=== PATIENT | male | born 1955 | race Caucasian/White ===

== ENCOUNTER 2019-06-18 09:10 | Inpatient (IN) | payer MEDICAID ==
[~2019-06-18] VITALS: Ht 165.1 cm; Wt 72.6 kg
[2019-06-18] MEDS ORDERED: RISP.5 PO (10:25)
[2019-06-18] MEDS ORDERED: PROZ10 PO (10:25)
[2019-06-18 11:07] LABS: BASOPHILS % (AUTO) 0.5 % (0.0-2.0); EOSINOPHILS % (AUTO) 0.8 % (1.0-6.0); HEMATOCRIT 44.6 % (41-53); HEMOGLOBIN 15.2 g/dL (13.5-17.5); LYMPHOCYTES # (AUTO) 1.4 K/uL (1.0-4.8); LYMPHOCYTES % (AUTO) 20.3 % (22.0-44.0); MEAN CORPUSCULAR HEMOGLOBIN 32.3 pg (26.0-34.0); MEAN CORPUSCULAR HGB CONC 34.2 G/dL (31.0-37.0); MEAN CORPUSCULAR VOLUME 94 fL (80-100); MONOCYTES # (AUTO) 0.8 K/uL (0.1-1.0); MONOCYTES % (AUTO) 10.8 % (2.0-9.0); NEUTROPHILS # (AUTO) 4.8 K/uL (1.8-7.7); NEUTROPHILS % (AUTO) 67.6 % (40.0-70.0); PLATELET COUNT (AUTO) 221 K/uL (150-450); RED BLOOD CELL COUNT(AUTO) 4.72 MIL/uL (4.50-5.90)
[2019-06-18] MEDS ORDERED: ZOLPIDEM TARTRATE 10 MG TABLET PO PRN (11:15)
[2019-06-18] MEDS ORDERED: HALOPERIDOL 5 MG TABLET PO PRN (11:15)
[2019-06-18 11:17] LABS: ANION GAP 7 mmol/L (8-16); CALCIUM, TOTAL 9.3 mg/dL (8.8-10.5); CARBON DIOXIDE 30 mmol/L (22-29); CHLORIDE 97 mmol/L (98-107); CREATININE 1.03 mg/dL (0.60-1.30); GLOMERULAR FILTR. RATE CALC > 60 mL/min (>60); GLUCOSE,RANDOM 103 mg/dL (70-110); POTASSIUM 3.1 mmol/L (3.5-5.1); SODIUM SERUM 134 mmol/L (136-145); UREA NITROGEN, BLOOD 14 mg/dL (7-18)
[2019-06-18 11:30] LABS: AMPHET/METH SCREEN,URINE POSITIVE (NEGATIVE); APPEARANCE,URINE CLOUDY (CLEAR); BARBITURATE SCREEN, URINE POSITIVE (NEGATIVE); BENZODIAZEPINES SCREEN,URINE POSITIVE (NEGATIVE); BILIRUBIN,URINE PRELIM. POSITIVE (NEGATIVE); CANNABINOID SCREEN,URINE NEGATIVE (NEGATIVE); COCAINE SCREEN,URINE NEGATIVE (NEGATIVE); GLUCOSE, URINE (UA) NEGATIVE (NEGATIVE); KETONES,URINE NEGATIVE (NEGATIVE); LEUKOCYTE ESTERASE ,URINE NEGATIVE (NEGATIVE); METHADONE SCREEN, URINE NEGATIVE (NEGATIVE); NITRATE,URINE NEGATIVE (NEGATIVE); OCCULT BLOOD,URINE NEGATIVE (NEGATIVE); OPIATE SCREEN,URINE POSITIVE (NEGATIVE); PH,URINE 5.5 (5.0-8.0); PROTEIN,URINE TRACE (NEGATIVE); UROBILINOGEN,URINE 0.2 mg/dL (<=1.0)
[2019-06-18] MEDS ORDERED: POTASSIUM CHLORIDE 20 MEQ ER TABLET PO ONE (11:30)
[2019-06-18 11:32] LABS: ALANINE AMINOTRANSFERASE 39 U/L (12-78); ALKALINE PHOSPHATASE 77 U/L (46-116); ASPARTATE AMINOTRANSFERASE 65 U/L (15-37); BILIRUBIN,TOTAL 1.1 mg/dL (0.1-1.0); TOTAL PROTEIN, SERUM 7.9 g/dL (6.4-8.2)
[2019-06-18 11:37] LABS: BACTERIA,URINE None Seen /HPF (None Seen); CALCIUM OXALATE CRYSTALS,UR Many /LPF (None Seen); RBC,URINE None Seen /HPF (0-2); SQUAMOUS EPITHELIAL CELL,UR Few /LPF (None Seen)
[2019-06-18 11:41] LABS: PHENCYCLIDINE SCREEN,URINE NEGATIVE (NEGATIVE)
[2019-06-18] MEDS ORDERED: CloNIDine HCL 0.1 MG TABLET PO PRN (13:15)
[2019-06-18] MEDS ORDERED: IBUPROFEN 400 MG TABLET PO PRN (13:15)
[2019-06-18] MEDS ORDERED: ALBUTEROL SULFATE HFA 90 MCG/PUFF 8 GM INHALER IH PRN (13:15)
[2019-06-18] MEDS ORDERED: PETROLATUM,WHITE 28 GM JELLY TP PRN (13:15)
[2019-06-18] MEDS ORDERED: LOPERAMIDE HCL 2 MG CAPSULE PO PRN (13:15)
[2019-06-18] MEDS ORDERED: ONDANSETRON HCL 4 MG TABLET PO PRN (13:15)
[2019-06-18] MEDS ORDERED: NICOTINE 14 MG/24 HOUR PATCH TD PRN (13:15)
[2019-06-18] MEDS ORDERED: ACETAMINOPHEN 325 MG TABLET PO PRN (13:15)
[2019-06-18] MEDS ORDERED: DOCUSATE SODIUM 100 MG CAPSULE PO PRN (13:15)
[2019-06-18] MEDS ORDERED: GuaiFENesin/D-METHORPHAN [SUGAR-FREE] 200-20MG/10 ML SYRUP UDCUP PO PRN (13:15)
[2019-06-18] MEDS ORDERED: MAG HYDROX/AL HYDROX/SIMETH ES 30 ML SUSPENSION UDCUP PO PRN (13:15)
[2019-06-18] MEDS ORDERED: MAGNESIUM HYDROXIDE SUSPENSION 30 ML UDCUP PO PRN (13:15)
[2019-06-18 13:29] VITALS: BP 119/73
[2019-06-18 16:00] VITALS: BP 108/65
[2019-06-19 05:46] VITALS: BP 113/55
[2019-06-19 08:06] LABS: CHOL/HDL RATIO 1.9 (4.2-7.3); FREE T4 (FREE THYROXINE) 1.29 ng/dL (0.76-1.46); POTASSIUM 3.1 mmol/L (3.5-5.1); THYROID STIMULATING HORMONE 0.92 uIU/mL (0.36-3.74)
[2019-06-19 10:03] VITALS: BP 105/64
[2019-06-19] MEDS: FLUoxetine HCL 20 MG CAPSULE PO SCH (10:16)
[2019-06-19] MEDS ORDERED: POTASSIUM CHLORIDE 20 MEQ ER TABLET PO ONE (10:45)
[2019-06-19] MEDS ORDERED: MAGNESIUM HYDROXIDE SUSPENSION 30 ML UDCUP PO PRN (13:30)
[2019-06-19] MEDS ORDERED: ONDANSETRON HCL 4 MG TABLET PO PRN (13:30)
[2019-06-19] MEDS ORDERED: LOPERAMIDE HCL 2 MG CAPSULE PO PRN (13:30)
[2019-06-19] MEDS ORDERED: ACETAMINOPHEN 325 MG TABLET PO PRN (13:30)
[2019-06-19] MEDS ORDERED: IBUPROFEN 400 MG TABLET PO PRN (13:30)
[2019-06-19] MEDS ORDERED: CloNIDine HCL 0.1 MG TABLET PO PRN (13:30)
[2019-06-19] MEDS ORDERED: DOCUSATE SODIUM 100 MG CAPSULE PO PRN (13:30)
[2019-06-19] MEDS ORDERED: NICOTINE 14 MG/24 HOUR PATCH TD PRN (13:30)
[2019-06-19] MEDS ORDERED: GuaiFENesin/D-METHORPHAN [SUGAR-FREE] 200-20MG/10 ML SYRUP UDCUP PO PRN (13:30)
[2019-06-19] MEDS ORDERED: ALBUTEROL SULFATE HFA 90 MCG/PUFF 8 GM INHALER IH PRN (13:30)
[2019-06-19] MEDS ORDERED: PETROLATUM,WHITE 28 GM JELLY TP PRN (13:30)
[2019-06-19] MEDS ORDERED: MAG HYDROX/AL HYDROX/SIMETH ES 30 ML SUSPENSION UDCUP PO PRN (13:30)
[2019-06-19 16:13] VITALS: BP 114/67
[2019-06-19] MEDS: LORazepam 2 MG TABLET PO PRN (17:37)
[2019-06-19] MEDS: QUEtiapine FUMARATE 100 MG TABLET PO SCH (20:49)
[2019-06-20] VITALS (7 sets, daily range): BP systolic 97–120; BP diastolic 47–82
[2019-06-20] MEDS: FLUoxetine HCL 20 MG CAPSULE PO SCH (08:24)
[2019-06-20] MEDS ORDERED: ChlordiazePOXIDE HCL 25 MG CAPSULE PO PRN (12:45)
[2019-06-20] MEDS: LORazepam 2 MG TABLET PO PRN ×2 (15:03→21:29)
[2019-06-20] MEDS: QUEtiapine FUMARATE 100 MG TABLET PO SCH (21:23)
[2019-06-21 06:47] VITALS: BP 107/63
[2019-06-21 06:48] VITALS: BP 107/63
[2019-06-21] MEDS ORDERED: ChlordiazePOXIDE HCL 25 MG CAPSULE PO PRN (07:00)
[2019-06-21 08:35] VITALS: BP 97/57
[2019-06-21 08:36] VITALS: BP 97/57
[2019-06-21] MEDS: ChlordiazePOXIDE HCL 25 MG CAPSULE PO SCH ×4 (09:13→20:35)
[2019-06-21] MEDS: FLUoxetine HCL 20 MG CAPSULE PO SCH (09:13)
[2019-06-21] MEDS: LORazepam 2 MG TABLET PO PRN (14:12)
[2019-06-21 17:05] VITALS: BP 111/63
[2019-06-21 17:06] VITALS: BP 111/63
[2019-06-21] MEDS: QUEtiapine FUMARATE 100 MG TABLET PO SCH (20:35)
[2019-06-22 06:59] VITALS: BP 115/65
[2019-06-22 08:19] VITALS: BP 108/55
[2019-06-22] MEDS: FLUoxetine HCL 20 MG CAPSULE PO SCH (09:45)
[2019-06-22] MEDS: ChlordiazePOXIDE HCL 25 MG CAPSULE PO SCH ×4 (09:45→20:59)
[2019-06-22] MEDS: LORazepam 2 MG TABLET PO PRN (14:09)
[2019-06-22 16:16] VITALS: BP 103/65
[2019-06-22] MEDS: QUEtiapine FUMARATE 100 MG TABLET PO SCH (20:59)
[2019-06-23 04:17] VITALS: BP 108/61
[2019-06-23 06:47] VITALS: BP 99/60
[2019-06-23] MEDS ORDERED: ChlordiazePOXIDE HCL 10 MG CAPSULE PO PRN (07:00)
[2019-06-23] MEDS: FLUoxetine HCL 20 MG CAPSULE PO SCH (09:21)
[2019-06-23] MEDS: ChlordiazePOXIDE HCL 10 MG CAPSULE PO SCH ×4 (09:21→20:22)
[2019-06-23 14:01] VITALS: BP 111/66
[2019-06-23 16:30] VITALS: BP 108/76
[2019-06-23 17:19] VITALS: BP 108/76
[2019-06-23] MEDS: LORazepam 2 MG TABLET PO PRN (18:37)
[2019-06-23] MEDS: QUEtiapine FUMARATE 200 MG TABLET PO SCH (20:21)
[2019-06-24] VITALS: BP 113/82
[2019-06-24 05:07] VITALS: BP 103/60
[2019-06-24 05:13] VITALS: BP 103/60
[2019-06-24] MEDS ORDERED: ChlordiazePOXIDE HCL 10 MG CAPSULE PO PRN (07:00)
[2019-06-24] MEDS: FLUoxetine HCL 20 MG CAPSULE PO SCH (09:06)
[2019-06-24 09:14] VITALS: BP 100/74
[2019-06-24 12:49] VITALS: BP 113/82
[2019-06-24] MEDS: LORazepam 2 MG TABLET PO PRN (15:57)
[2019-06-24 16:15] VITALS: BP 122/83
[2019-06-24] MEDS: QUEtiapine FUMARATE 200 MG TABLET PO SCH (20:50)
[2019-06-25 01:54] VITALS: BP 100/64
[2019-06-25 08:10] VITALS: BP 124/74
[2019-06-25] MEDS: FLUoxetine HCL 20 MG CAPSULE PO SCH (08:43)
[2019-06-25] MEDS ORDERED: QUET200T PO (13:00)
[2019-06-25] MEDS ORDERED: FLUO-191 PO (13:01)
== END 2019-06-25 15:30 | disposition home or self-care (01) | DRG 750 ==
LOC: EMS 09:12 → B3A 11:32
DX: F25.1 Schizoaffective disorder, depressive type (principal); R45.851 Suicidal ideations; Q21.0 Ventricular septal defect; B19.20 Unspecified viral hepatitis C without hepatic coma; F11.10 Opioid abuse, uncomplicated; F15.10 Other stimulant abuse, uncomplicated; R74.0 Nonspecific elevation of levels of transaminase and lactic acid dehydrogenase [LDH]; E87.6 Hypokalemia; F19.10 Other psychoactive substance abuse, uncomplicated; I10 Essential (primary) hypertension; F10.20 Alcohol dependence, uncomplicated; Y90.9 Presence of alcohol in blood, level not specified; Z91.5 Personal history of self-harm; Z59.0 Homelessness
CPT/HCPCS: 84132; 84439; 84443; G0480; Q0162